=== PATIENT | male | born 2000 | race Hispanic/Latino ===

== ENCOUNTER 2024-03-14 04:55 | Emergency (ER) | payer SELFPAY ==
[2024-03-14] MEDS ORDERED: Fluorescein Opthalmic Strip ONE (05:04)
[2024-03-14] MEDS ORDERED: Tetracaine 0.5% PF 4 ML BOT ONE (05:05)
[2024-03-14] MEDS ORDERED: Acetaminophen 500 MG TAB ONE (05:35)
[2024-03-14] MEDS ORDERED: Ibuprofen 200 MG TAB ONE (05:35)
== END 2024-03-14 06:26 | disposition home or self-care (01) ==
LOC: CSHERS 04:55
DX: T15.01XA Foreign body in cornea, right eye, initial encounter (principal); F17.290 Nicotine dependence, other tobacco product, uncomplicated; W44.E4XA Non-magnetic metal jewelry entering into or through a natural orifice, initial encounter; Y93.89 Activity, other specified
CPT/HCPCS: 99283